=== PATIENT | male | born 1935 | race Caucasian/White ===

== ENCOUNTER → 2016-11-09 | Outpatient (CLI) | payer OTHER | END | disposition home or self-care (01) | LOC: LAB.O 10:42 | PROVIDERS: ATTEND Nurse Practitioner Family | DX: R40.4 Transient alteration of awareness (principal); R40.0 Somnolence ==

== ENCOUNTER → 2017-01-31 | Outpatient (CLI) | payer OTHER | END | disposition home or self-care (01) | LOC: LAB.O 15:50 | PROVIDERS: ATTEND Nurse Practitioner Family | DX: I95.1 Orthostatic hypotension (principal) ==

== ENCOUNTER 2017-09-16 10:00 | Day surgery (SDC) | payer OTHER ==
[~2017-09-16 10:00] MED LIST: TROP 1%/CYCLOPEN 1%/PHENYL 2% DROPS ONE
[2017-09-16] MEDS: PROPARACAINE 0.5% OPHTH SOL 15 ML BTTL LEFT_EYE ONE ×2 (13:15→13:35)
[2017-09-16] MEDS: TOBRAMYCIN SULF 0.3 % OPHT SOL 1 DROP LEFT_EYE ONE ×2 (13:15→13:43)
[2017-09-16] MEDS ORDERED: MIDAZOLAM INJ 2 MG/2 ML VIAL ONE (13:27)
[2017-09-16] MEDS ORDERED: LIDOCAINE 1% PF 2 ML AMP INJ ONE ×2 (13:43→13:52)
[2017-09-16] MEDS ORDERED: DEXAMETHASONE 0.1% OPHTH SOL 1 DROP LEFT_EYE ONE ×4 (13:43→14:10)
[2017-09-16] MEDS ORDERED: BRIMONIDINE 0.2% OPHTH DROPS LEFT_EYE ONE ×4 (13:44→14:10)
[2017-09-16] MEDS ORDERED: TOBRAMYCIN SULF 0.3 % OPHT SOL 1 DROP LEFT_EYE ONE ×3 (14:03→14:10)
[2017-09-16 16:41] VITALS: BP 106/83; TEMP 97.3; O2SAT 98
== END 2017-09-16 14:55 | disposition home or self-care (01) ==
LOC: AMB 10:00
PROVIDERS: ATTEND Ophthalmology
DX: H25.12 Age-related nuclear cataract, left eye (principal); N40.0 Benign prostatic hyperplasia without lower urinary tract symptoms; F03.90 Unspecified dementia, unspecified severity, without behavioral disturbance, psychotic disturbance, mood disturbance, and anxiety; G47.30 Sleep apnea, unspecified; Z91.041 Radiographic dye allergy status; Z79.82 Long term (current) use of aspirin; Z79.899 Other long term (current) drug therapy
CPT/HCPCS: 00142; 66984; J2250

== ENCOUNTER 2017-09-30 05:32 | Day surgery (SDC) | payer OTHER ==
[2017-09-30] MEDS ORDERED: TROP 1%/CYCLOPEN 1%/PHENYL 2% DROPS ONE (05:58)
[2017-09-30] MEDS ORDERED: PROPARACAINE 0.5% OPHTH SOL 15 ML BTTL ONE (05:58)
[2017-09-30] MEDS ORDERED: LIDOCAINE 1% PF 2 ML AMP INJ ONE (14:12)
[2017-09-30] MEDS ORDERED: DEXAMETHASONE 0.1% OPHTH SOL 1 DROP RIGHT_EYE ONE ×2 (14:17→14:28)
[2017-09-30] MEDS ORDERED: TOBRAMYCIN SULF 0.3 % OPHT SOL 1 DROP RIGHT_EYE ONE ×2 (14:18→14:28)
[2017-09-30] MEDS ORDERED: BRIMONIDINE 0.2% OPHTH DROPS RIGHT_EYE ONE ×2 (14:18→14:28)
== END 2017-09-30 15:05 | disposition home or self-care (01) ==
LOC: AMB 05:32
PROVIDERS: ATTEND Ophthalmology
DX: H25.11 Age-related nuclear cataract, right eye (principal); I10 Essential (primary) hypertension; I25.10 Atherosclerotic heart disease of native coronary artery without angina pectoris; K21.9 Gastro-esophageal reflux disease without esophagitis; J45.909 Unspecified asthma, uncomplicated; G47.30 Sleep apnea, unspecified; F03.90 Unspecified dementia, unspecified severity, without behavioral disturbance, psychotic disturbance, mood disturbance, and anxiety; Z87.891 Personal history of nicotine dependence; Z79.82 Long term (current) use of aspirin; Z79.899 Other long term (current) drug therapy

== ENCOUNTER → 2018-02-17 | Outpatient (CLI) | payer OTHER | LOC: LAB.O 11:23 | PROVIDERS: ATTEND Nurse Practitioner Family | DX: E86.0 Dehydration (principal) ==

== ENCOUNTER 2018-05-09 18:21 | Emergency (ER) | payer OTHER ==
[2018-05-09] MEDS ORDERED: SODIUM CHLORIDE 0.9% 1000ML 1,000 ML IVS ONE (18:30)
--- NOTE | 2018-05-09 18:33 | ED.PDOC ---
History of Present Illness - General Chief Complaint: Neuro Symptoms/Deficits Stated Complaint: slurred speech,weakness Time Seen by Provider: 05/09/18 18:24 Source: family Exam Limitations: clinical condition - History of Present Illness Initial Comments: Pt has had cough x 2 days. today started having fever, weakness, and increased confusion Timing/Duration: 4-6 hours Severity: moderate Improving Factors: nothing Worsening Factors: nothing Associated Symptoms: cough, fever/chills, weakness, other - confusion worse Allergies/Adverse Reactions: Allergies Iodine Allergy (Verified 05/11/14 12:08) Home Medications: Ambulatory Orders Ascorbic Acid [Vitamin C] 1,000 mg PO DAILY 09/16/17 Aspirin [Aspirin EC Low Dose] 1 ea PO DAILY 09/16/17 Cyanocobalamin [B12] 1,000 mcg PO DAILY 09/16/17 Divalproex Sodium [Depakote ER] 250 mg PO BEDTIME 09/16/17 Donepezil Hydrochloride [Donepezil HCl] 23 mg PO BEDTIME 09/16/17 Melatonin 5 mg PO BEDTIME 09/16/17 Memantine [Namenda] 25 mg PO 09/16/17 Fairview 3 Fatty Acids-Fairview 6 FA [Fairview-3 & Fairview-6 Fish Oi] 1 cap PO DAILY 09/16/17 Potassium Phosphate Tab [K-Phos Tab] 1 each PO DAILY 09/16/17 Propafenone HCl [Rythmol Sr] 325 mg PO BEDTIME 09/16/17 Sertraline HCl [Zoloft] 50 mg PO DAILY 09/16/17 Tamsulosin [Flomax] 0.4 mg PO QD 09/16/17 Terazosin HCl 5 mg PO DAILY 09/16/17 Testosterone [EC-Rx Testosterone 10%] 10 % TD BEDTIME 09/16/17 Vitamins A & D W/ K [Adk [id number] Unit-Mcg] 1 cap PO DAILY 09/16/17 Cefdinir 300 mg PO BID #20 capsule 05/09/18 Review of Systems - Review of Systems Constitutional: States: fever, weakness Respiratory: States: cough Unable to Obtain Due To: dementia Past Medical History (General) - Patient Medical History Hx Seizures: No Hx Stroke: No Hx Dementia: No Hx Asthma: No Hx of COPD: No Hx Cardiac Disorders: No Hx Congestive Heart Failure: No Hx Pacemaker: No Hx Hypertension: No Hx Thyroid Disease: No Hx Diabetes: No Hx Gastroesophageal Reflux: No Hx Renal Disease: No Hx Cancer: No Hx of HIV: No Hx Hepatitis C: No Hx MRSA: No - Vaccination History Hx Tetanus, Diphtheria Vaccination: No Hx Influenza Vaccination: No Hx Pneumococcal Vaccination: No - Social History Hx Tobacco Use: Yes Hx Chewing Tobacco Use: No Hx Alcohol Use: No Hx Substance Use: No Hx Substance Use Treatment: No Hx Depression: No Hx Physical Abuse: No Hx Emotional Abuse: No Hx Suspected Abuse: No - Female History Patient : No Family Medical History - Family History Mother Age (years): 98 Living Status: Hx Family;Other: dementia Physical Exam - Physical Exam General Appearance: Agitated, Lethargic, Obvious distress Eye Exam: bilateral normal Ears, Nose, Throat: hearing decreased, other - dry mucosa Neck: normal inspection Respiratory: chest non-tender, normal breath sounds, no respiratory distress Cardiovascular/Chest: regular rate, rhythm, no edema Gastrointestinal/Abdominal: normal bowel sounds, non tender, soft Extremity: normal inspection, no pedal edema Departure - Departure Clinical Impression: Confusion associated with infection Acute bronchitis Qualifiers: Bronchitis organism: unspecified organism Qualified Code(s): J20.9 - Acute bronchitis, unspecified Disposition: Discharge to Home or Self Care Condition: Fair Departure Forms: ED Discharge - Pt. Copy, Patient Portal Self Enrollment Referrals: [facility] [employer] APPLICATIONS MANAGER [Primary Care Provider] - 1-2 Weeks Prescriptions: Cefdinir 300 mg PO BID #20 capsule Home Medications: Ambulatory Orders Ascorbic Acid [Vitamin C] 1,000 mg PO DAILY 09/16/17 Aspirin [Aspirin EC Low Dose] 1 ea PO DAILY 09/16/17 Cyanocobalamin [B12] 1,000 mcg PO DAILY 09/16/17 Divalproex Sodium [Depakote ER] 250 mg PO BEDTIME 09/16/17 Donepezil Hydrochloride [Donepezil HCl] 23 mg PO BEDTIME 09/16/17 Melatonin 5 mg PO BEDTIME 09/16/17 Memantine [Namenda] 25 mg PO 09/16/17 Fairview 3 Fatty Acids-Fairview 6 FA [Fairview-3 & Fairview-6 Fish Oi] 1 cap PO DAILY 09/16/17 Potassium Phosphate Tab [K-Phos Tab] 1 each PO DAILY 09/16/17 Propafenone HCl [Rythmol Sr] 325 mg PO BEDTIME 09/16/17 Sertraline HCl [Zoloft] 50 mg PO DAILY 09/16/17 Tamsulosin [Flomax] 0.4 mg PO QD 09/16/17 Terazosin HCl 5 mg PO DAILY 09/16/17 Testosterone [EC-Rx Testosterone 10%] 10 % TD BEDTIME 09/16/17 Vitamins A & D W/ K [Adk [id number] Unit-Mcg] 1 cap PO DAILY 09/16/17 Cefdinir 300 mg PO BID #20 capsule 05/09/18
--- NOTE | 2018-05-09 19:05 | RAD ---
EXAM DESCRIPTION: Chest,1 View CLINICAL HISTORY: 83 years Male, cough Comparison: 05/11/2014 FINDINGS: Single AP view of the chest. Cardiomediastinal silhouette is within normal limits. Low lung volumes bilaterally. No focal lung consolidation. No pleural effusion. No pneumothorax. No acute osseous finding. IMPRESSION: No acute chest finding. Electronically signed by: Amanda Lai MD 05/09/2018 7:04 PM IP COUNSEL
[2018-05-09] MEDS ORDERED: cefTRIAXone SODIUM 1 GM in SODIUM CHL 0.9% 50ML MIN-BAG+ 50 ML IVPB ONE (22:01)
[2018-05-09] MEDS ORDERED: cefTRIAXone SODIUM 1 GM VIAL ONE (22:05)
[2018-05-09] MEDS ORDERED: SODIUM CHL 0.9% 50ML MIN-BAG+ 50 ML IVPB ONE (22:06)
[2018-05-09] MEDS ORDERED: IBUPROFEN 200 MG TAB PO ONE (22:13)
[2018-05-09 22:57] VITALS: BP 154/90; TEMP 101; O2SAT 98
== END 2018-05-09 22:57 | disposition home or self-care (01) ==
LOC: ER 18:21
DX: J20.9 Acute bronchitis, unspecified (principal); R41.0 Disorientation, unspecified; F03.90 Unspecified dementia, unspecified severity, without behavioral disturbance, psychotic disturbance, mood disturbance, and anxiety; Z79.899 Other long term (current) drug therapy; Z87.891 Personal history of nicotine dependence
CPT/HCPCS: 36415; 71045; 80053; 81001; 85025; 87040; 87502; J0696; J7030; J7050

== ENCOUNTER → 2019-01-27 | Outpatient (CLI) | payer OTHER | LOC: LAB.O 11:47 | PROVIDERS: ATTEND Nurse Practitioner Family | DX: G30.9 Alzheimer's disease, unspecified (principal); Z13.6 Encounter for screening for cardiovascular disorders ==

== ENCOUNTER 2019-07-20 18:53 | Emergency (ER) | payer OTHER ==
[2019-07-20] MEDS ORDERED: SODIUM CHLORIDE 0.9% (FLUSH) 10 ML SYG IV PRN (19:02)
[2019-07-20] MEDS ORDERED: SODIUM CHLORIDE 0.9% 1000ML 1,000 ML IVS ONE (19:03)
--- NOTE | 2019-07-20 19:06 | ED.PDOC ---
History of Present Illness - General Chief Complaint: Neuro Symptoms/Deficits Time Seen by Provider: 07/20/19 19:02 Source: family, EMS - History of Present Illness Initial Comments: 84 yo male with PMH of end-stage dementia who is bib EMS from home for cc of altered mental status. Family reports pt is more altered and aggressive/combative than usual today so they called EMS for ED evaluation. No meaningful hx able to be obtained from pt. EMS reported SpO2 86% on room air which improved on NC en route. He was given Versed 2.5 mg IV en route with improvement in combativeness. Noted fever here on arrival 100.9 F. Son who lives with and cares for pt at home at bedside shortly after pt arrival. He reports confusion actually is near his usual baseline but that he has been shaking more than usual to BL UE's and face intermittently for past couple days and also seems to intermittently be having pain in the Right leg for past few days. However, he was noted to be ambulating earlier at home with his walker without any pain. Allergies/Adverse Reactions: Allergies Iodine Allergy (Verified 05/11/14 12:08) Home Medications: Ambulatory Orders Ascorbic Acid [Vitamin C] 1,000 mg PO DAILY 09/16/17 Aspirin [Aspirin EC Low Dose] 1 ea PO DAILY 09/16/17 Cyanocobalamin [B12] 1,000 mcg PO DAILY 09/16/17 Divalproex Sodium [Depakote ER] 250 mg PO BEDTIME 09/16/17 Donepezil Hydrochloride [Donepezil HCl] 23 mg PO BEDTIME 09/16/17 Melatonin 5 mg PO BEDTIME 09/16/17 Memantine [Namenda] 25 mg PO 09/16/17 Simon-3 Fatty Acids [Simon-3 & Simon-6 Fish Oi] 1 cap PO DAILY 09/16/17 Potassium Phosphate Tab [K-Phos Tab] 1 each PO DAILY 09/16/17 Propafenone HCl [Rythmol Sr] 325 mg PO BEDTIME 09/16/17 Sertraline HCl [Zoloft] 50 mg PO DAILY 09/16/17 Tamsulosin [Flomax] 0.4 mg PO QD 09/16/17 Terazosin HCl 5 mg PO DAILY 09/16/17 Testosterone [EC-Rx Testosterone 10%] 10 % TD BEDTIME 09/16/17 Vitamins A & D W/ K [Adk [id number] Unit-Mcg] 1 cap PO DAILY 09/16/17 Cefdinir 300 mg PO BID #20 capsule 05/09/18 Review of Systems - Review of Systems Review of Systems: 07/20/19 19:06 as per HPI All other Systems: Reviewed and Negative Past Medical History (General) - Patient Medical History Hx Seizures: No Hx Stroke: No Hx Dementia: No Hx Asthma: No Hx of COPD: No Hx Cardiac Disorders: No Hx Congestive Heart Failure: No Hx Pacemaker: No Hx Hypertension: No Hx Thyroid Disease: No Hx Diabetes: No Hx Gastroesophageal Reflux: No Hx Renal Disease: No Hx Cancer: No Hx of HIV: No Hx Hepatitis C: No Hx MRSA: No - Vaccination History Hx Tetanus, Diphtheria Vaccination: No Hx Influenza Vaccination: No Hx Pneumococcal Vaccination: No - Social History Hx Tobacco Use: Yes Hx Chewing Tobacco Use: No Hx Alcohol Use: No Hx Substance Use: No Hx Substance Use Treatment: No Hx Depression: No Hx Physical Abuse: No Hx Emotional Abuse: No Hx Suspected Abuse: No - Female History Patient : No Family Medical History - Family History Mother Age (years): 98 Living Status: Hx Family;Other: dementia Physical Exam - Physical Exam General Appearance: Agitated, Anxious, Restless Eye Exam: bilateral normal Ears, Nose, Throat: hearing decreased, other - dry appearing oral mucosa Neck: non-tender, full range of motion, supple, normal inspection Respiratory: chest non-tender, lungs clear, normal breath sounds, no respiratory distress, no accessory muscle use Cardiovascular/Chest: normal peripheral pulses, regular rate, rhythm, no edema, no gallop, no JVD, no murmur Peripheral Pulses: radial,right: 2+, radial,left: 2+ Gastrointestinal/Abdominal: non tender, soft, no organomegaly Back Exam: normal inspection, no CVA tenderness Extremity: normal range of motion, non-tender, normal inspection, no pedal edema, no calf tenderness Neurologic: no motor/sensory deficits, disoriented x 3, other - awake but does not respond to verbal questions, does not follow commands, babbles incoherently Skin Exam: normal color, warm/dry Progress - Progress Progress: 07/20/19 19:08 AMS -consider dehydration, metabolic, electrolytes, infectious, ACS, UTI, PNA, CHF, iatrogenic, neurogenic, other -obtain labs, flu, UA, cardiac work-up, CT head 07/21/19 22:30 -Pt has remained stable through ED stay. CT head showed no acute processes, chronic microvascular ischemic changes noted. XR Chest, pelvis, R femur no acute processes. Strep testing positive, flu negative. Labs show BUN 37, Cr 1.2, otherwise largely unremarkable from baseline. Discussed with pt's family at length. Given Bicillin 1.2 million units IM for strep. Feel this along with mild dehydration and uremia are likely contributing to his AMS. No emergent conditions seem present. Offered consultation of hospitalist for admission but his family would just like to take him back home. Return warnings discussed at length and close PCP f/u advised. Usman Pickard MD Billing #[id number] 07/20/19 19:02 IV Care:Saline Lock per Protoc QSHIFT Telemetry .ONCE EKG Assessment ONCE Pulse Oximetry Assessment DAILY 07/20/19 19:15 EKG STAT Laboratory Results - last 24 hr 07/20/19 07/20/19 07/20/19 19:20 19:20 19:20 WBC 4.8 RBC 4.01 L Hgb 12.9 L Hct 39.6 L MCV 98.8 H MCH 32.1 H MCHC 32.5 L RDW 14.8 H Plt Count 106 L MPV 8.2 Absolute Neuts (auto) 3.20 Absolute Lymphs (auto) 0.70 L Absolute Monos (auto) 0.80 Absolute Eos (auto) 0.00 Absolute Basos (auto) 0.00 Neutrophils % 66.9 Lymphocytes % 14.3 L Monocytes % 17.7 H Eosinophils % 0.3 L Basophils % 0.8 Sodium 143 Potassium 3.9 Chloride 107 Carbon Dioxide 23 Anion Gap 16.9 BUN 37 H Creatinine 1.21 BUN/Creatinine Ratio 30.6 H Random Glucose 109 H Serum Osmolality 294.2 Lactic Acid 1.6 Calcium 9.4 Total Bilirubin 0.9 AST 38 ALT 24 Alkaline Phosphatase 110 Troponin I B-Natriuretic Peptide 176.0 H Serum Total Protein 7.3 Albumin 3.7 Globulin 3.6 H Albumin/Globulin Ratio 1.0 L Group A Strep Rapid 07/20/19 07/20/19 19:20 19:20 WBC RBC Hgb Hct MCV MCH MCHC RDW Plt Count MPV Absolute Neuts (auto) Absolute Lymphs (auto) Absolute Monos (auto) Absolute Eos (auto) Absolute Basos (auto) Neutrophils % Lymphocytes % Monocytes % Eosinophils % Basophils % Sodium Potassium Chloride Carbon Dioxide Anion Gap BUN Creatinine BUN/Creatinine Ratio Random Glucose Serum Osmolality Lactic Acid Calcium Total Bilirubin AST ALT Alkaline Phosphatase Troponin I 0.03 B-Natriuretic Peptide Serum Total Protein Albumin Globulin Albumin/Globulin Ratio Group A Strep Rapid Positive - EKG/XRAY/CT EKG: Sinus, Tachy - HR 105, no ST elevations or q waves, prolonged DC interval but intervals otherwise wnl, axis normal, unchanged from 11/09/16 EKG XRAY: chest - no acute processes per my read - Additional EKG/XRAY/Consults XRAY #2: pelvis - no acute processes per my read XRAY #3: femur - Right - no acute processes Departure - Departure Clinical Impression: Strep pharyngitis, Dehydration Dementia Qualifiers: Dementia type: unspecified type Dementia behavioral disturbance: with behavioral disturbance Qualified Code(s): F03.91 - Unspecified dementia with behavioral disturbance Time of Disposition: 22:56 Disposition: Discharge to Home or Self Care Condition: Fair Departure Forms: ED Discharge - Pt. Copy, Patient Portal Self Enrollment Instructions: Sore Throat, Adult (DC) Diet: resume usual diet Referrals: [facility] PRISM MEASURER [Primary Care Provider] - 1-2 Weeks Home Medications: Ambulatory Orders Ascorbic Acid [Vitamin C] 1,000 mg PO DAILY 09/16/17 Aspirin [Aspirin EC Low Dose] 1 ea PO DAILY 09/16/17 Cyanocobalamin [B12] 1,000 mcg PO DAILY 09/16/17 Divalproex Sodium [Depakote ER] 250 mg PO BEDTIME 09/16/17 Donepezil Hydrochloride [Donepezil HCl] 23 mg PO BEDTIME 09/16/17 Melatonin 5 mg PO BEDTIME 09/16/17 Memantine [Namenda] 25 mg PO 09/16/17 Simon-3 Fatty Acids [Simon-3 & Simon-6 Fish Oi] 1 cap PO DAILY 09/16/17 Potassium Phosphate Tab [K-Phos Tab] 1 each PO DAILY 09/16/17 Propafenone HCl [Rythmol Sr] 325 mg PO BEDTIME 09/16/17 Sertraline HCl [Zoloft] 50 mg PO DAILY 09/16/17 Tamsulosin [Flomax] 0.4 mg PO QD 09/16/17 Terazosin HCl 5 mg PO DAILY 09/16/17 Testosterone [EC-Rx Testosterone 10%] 10 % TD BEDTIME 09/16/17 Vitamins A & D W/ K [Adk [id number] Unit-Mcg] 1 cap PO DAILY 09/16/17 Cefdinir 300 mg PO BID #20 capsule 05/09/18 Additional Instructions: Keep the patient well-hydrated and advance the diet as tolerated. Follow up closely in next 3-7 days with the patient's doctor for repeat evaluation and to discuss his behavior changes and review medications. Return if concerning symptoms develop such as chest pain, shortness of breath, abdominal pain, continued fevers, etc...
[2019-07-20 19:33] VITALS: TEMP 100.9
[2019-07-20] MEDS ORDERED: MIDAZOLAM INJ 5 MG/5 ML VIAL ONE (19:40)
--- NOTE | 2019-07-20 19:47 | RAD ---
EXAM DESCRIPTION: XR Chest,1 View CLINICAL HISTORY: Fevers, altered mental status TECHNIQUE: Single frontal view of the chest is submitted. COMPARISON: 05/09/2018 FINDINGS: Heart: The cardiothoracic silhouette is enlarged, stable, in part accentuated by portable technique. Lungs: No focal consolidation. Mediastinum: Unremarkable Pleura: No appreciable effusion. No pneumothorax. Bones: Multilevel spondylosis. No acute fracture. Upper abdomen: Elevation of the right hemidiaphragm and loop of bowel subjacent to the diaphragm again demonstrated. IMPRESSION: No acute disease. Electronically signed by: Janice Pyle MD 07/20/2019 7:46 PM CDT
--- NOTE | 2019-07-20 20:36 | CT ---
PROCEDURE: CT Head CLINICAL HISTORY: altered mental status TECHNIQUE: Contiguous axial CT images obtained through the brain without IV contrast. Coronal and sagittal reformatted images were provided. This exam was performed according to our departmental dose-optimization program, which includes automated exposure control, adjustment of the mA and/or kV according to patient size and/or use of iterative reconstruction technique. COMPARISON: 05/11/2014 FINDINGS: Artifacts: Motion artifact degrades image quality. Brain: Moderate cerebral atrophy and mild bilateral periventricular and subcortical white matter low-attenuation most compatible with chronic microvascular angiopathy, mildly progressed from the prior. No focal mass effect. Evans-white matter differentiation is within normal limits. No hemorrhage. Ventricles: No ventriculomegaly or midline shift. Extra-axial spaces: No extra-axial collection or hemorrhage. Paranasal sinuses and mastoid air cells: Well-aerated Vessels: There is atherosclerotic disease of the internal carotid arteries bilaterally. Bones: Unremarkable Soft tissues: Unremarkable IMPRESSION: 1. Allowing for motion artifact, no acute intracranial or extra-axial abnormality. 2. Other findings as above. Electronically signed by: Janice Pyle MD 07/20/2019 8:34 PM CDT
--- NOTE | 2019-07-20 21:08 | RAD ---
EXAM DESCRIPTION: XR Pelvis (accession [id number]) CLINICAL HISTORY: RLE pain with movement TECHNIQUE: One view of the pelvis is submitted COMPARISON: 07/20/2017 FINDINGS: Bones: No acute fracture. Partially visualized right femoral plate and screws. Joints: No dislocation. Mild degenerative changes at the hip joints bilaterally. Moderate degenerative changes at the lower lumbar spine. Soft tissues: Unremarkable IMPRESSION: No acute abnormality. EXAM DESCRIPTION: XR Femur, Right (accession [id number]) CLINICAL HISTORY: RLE pain with movement TECHNIQUE: Two views of the right femur are submitted. COMPARISON: 07/20/2017 FINDINGS: Bones: No acute fracture. Anterior and lateral plate and screw fixation transfixing a remote mid to distal femoral diaphyseal fracture with surrounding callus again demonstrated. Symmetric lucency surrounding the most distal femoral screw similar to the prior suggestive of loosening. Small metallic densities surrounding the distal hardware again demonstrated. Joints: Mild degenerative changes at the right hip joint. Mild to moderate degenerative changes at the medial greater than lateral compartment of the knee. Soft tissues: Unremarkable IMPRESSION: No acute abnormality. Electronically signed by: Janice Pyle MD 07/20/2019 9:06 PM CDT
--- NOTE | 2019-07-20 21:08 | RAD ---
EXAM DESCRIPTION: XR Pelvis (accession [id number]) CLINICAL HISTORY: RLE pain with movement TECHNIQUE: One view of the pelvis is submitted COMPARISON: 07/20/2017 FINDINGS: Bones: No acute fracture. Partially visualized right femoral plate and screws. Joints: No dislocation. Mild degenerative changes at the hip joints bilaterally. Moderate degenerative changes at the lower lumbar spine. Soft tissues: Unremarkable IMPRESSION: No acute abnormality. EXAM DESCRIPTION: XR Femur, Right (accession [id number]) CLINICAL HISTORY: RLE pain with movement TECHNIQUE: Two views of the right femur are submitted. COMPARISON: 07/20/2017 FINDINGS: Bones: No acute fracture. Anterior and lateral plate and screw fixation transfixing a remote mid to distal femoral diaphyseal fracture with surrounding callus again demonstrated. Symmetric lucency surrounding the most distal femoral screw similar to the prior suggestive of loosening. Small metallic densities surrounding the distal hardware again demonstrated. Joints: Mild degenerative changes at the right hip joint. Mild to moderate degenerative changes at the medial greater than lateral compartment of the knee. Soft tissues: Unremarkable IMPRESSION: No acute abnormality. Electronically signed by: Janice Pyle MD 07/20/2019 9:06 PM CDT
[2019-07-20] MEDS ORDERED: PENICILLIN BENZATHINE 1.2 MU 1.2 MU/2 ML SYG IM ONE (21:47)
[2019-07-20] MEDS ORDERED: SODIUM CHLORIDE 0.9% 500ML 500 ML IVS ONE (21:47)
[2019-07-20 23:27] VITALS: BP 103/76; O2SAT 99
== END 2019-07-20 23:15 | disposition home or self-care (01) ==
LOC: ER 18:53
DX: F03.91 Unspecified dementia, unspecified severity, with behavioral disturbance (principal); J02.0 Streptococcal pharyngitis; E86.0 Dehydration; R00.0 Tachycardia, unspecified; Z87.891 Personal history of nicotine dependence; Z79.899 Other long term (current) drug therapy; Z79.82 Long term (current) use of aspirin; Z91.041 Radiographic dye allergy status
CPT/HCPCS: 70450; 71045; 72170; 73551; 80053; 83605; 83880; 84484; 85025; 87502; 87880; 93005; J0561; J2060; J7030; J7040

== ENCOUNTER → 2019-07-23 | Outpatient (CLI) | payer OTHER ==
--- NOTE | 2019-07-24 09:20 | RAD ---
EXAM DESCRIPTION: Chest,1 View CLINICAL HISTORY: 84 years Male, AMS. R41.82 COMPARISON: Previous study July 20, 2019 TECHNIQUE: AP portable chest. FINDINGS: Heart size is large with normal pulmonary vascularity. 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 Elevated diaphragms bilaterally. Partial volume loss or infiltrate in the left lung base with blunting of left costophrenic angle consistent with small effusion. This area could be better evaluated with upright PA and lateral chest x-ray if patient is able. No consolidating infiltrate. No pulmonary mass or worrisome nodule. No pneumothorax. Bones are unremarkable. IMPRESSION: Partial volume loss or infiltrate in the left lung base. Small left pleural effusion. Electronically signed by: Arturo Durbin MD 07/24/2019 9:18 AM CDT
--- NOTE | 2019-07-24 09:42 | RAD ---
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 Findings: Four views/radiographs Location: Right foot No acute fracture or dislocation. Mild midfoot osteoarthritis. Mild first MTP arthropathy. Lisfranc alignment is maintained. No soft tissue gas. There is soft tissue swelling along the plantar surface heel. No aggressive osseous erosion. Os trigonum. IMPRESSION: Soft tissue swelling about the plantar surface of the right foot. No acute osseous abnormality. Electronically signed by: Cj Addison MD 07/24/2019 9:40 AM CDT
== END ==
LOC: LAB.O 15:25
PROVIDERS: ATTEND Nurse Practitioner Family
DX: J90 Pleural effusion, not elsewhere classified (principal); R91.8 Other nonspecific abnormal finding of lung field; R41.82 Altered mental status, unspecified; I87.311 Chronic venous hypertension (idiopathic) with ulcer of right lower extremity

== ENCOUNTER 2019-07-24 13:35 | Inpatient (IN) | payer OTHER ==
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
[2019-07-24] MEDS ORDERED: SODIUM CHLORIDE 0.9% (FLUSH) 10 ML SYG IV PRN (14:03)
[2019-07-24] MEDS ORDERED: ONDANSETRON INJ 4 MG/2 ML VIAL IV PRN (14:03)
[2019-07-24] MEDS ORDERED: ALBUTEROL SULFATE 2.5 MG/3 ML VIAL NEB PRN (14:03)
[2019-07-24] MEDS ORDERED: VANCOMYCIN PER PHARMACY INJ SCH (14:30)
[2019-07-24] MEDS ORDERED: PIPERACILLIN/TAZOBACTAM 3.375 GM VIAL IVPB ONE ×3 (15:06→19:19)
[2019-07-24] MEDS ORDERED: SODIUM CHLORIDE 0.9% 100ML 100 ML IVPB ONE ×3 (15:06→19:20)
[2019-07-24] MEDS: PIPERACILLIN/TAZOBACTAM 3.375 GM in SODIUM CHLORIDE 0.9% 100ML 100 ML IVPB SCH ×2 (15:14→20:13)
[2019-07-24] MEDS ORDERED: VANCOMYCIN HCL INJ 500 MG VIAL ONE (16:03)
[2019-07-24] MEDS ORDERED: VANCOMYCIN HCL INJ 1,000 MG VIAL IVPB ONE (16:04)
[2019-07-24] MEDS ORDERED: SODIUM CHLORIDE 0.9% 250ML 250 ML ONE (16:04)
[2019-07-24] MEDS: IV SET AND CAP CHANGE INJ INJ SCH (16:24)
[2019-07-24] MEDS: VANCOMYCIN HCL INJ 1,000 MG, VANCOMYCIN HCL INJ 250 MG in SODIUM CHLORIDE 0.9% 250ML 25... IVPB SCH (16:24)
--- NOTE | 2019-07-24 16:44 | RAD ---
EXAM DESCRIPTION: Chest,1 View CLINICAL HISTORY: pna cough COMPARISON: July 23, 2019 IMPRESSION: Single AP portable upright view of the chest shows enlargement of the cardiac silhouette with left ventricular contour. No pulmonary vascular congestion. Patient is mildly rotated towards the left. Lungs are normally aerated and clear. Infiltrate in the left lower lobe seen on previous exam is resolved. No obvious pleural effusion or pneumothorax is seen. Air-filled bowel is seen below the right hemidiaphragm. Electronically signed by: Jovani Rodrigues MD 07/24/2019 4:43 PM CDT
[2019-07-24] MEDS: IPRATROPIUM/ALBUTEROL 3 ML VIAL INH SCH ×2 (17:20→21:19)
[2019-07-24] MEDS ORDERED: DIVALPROEX SODIUM ER 250 MG TAB PO SCH (21:00)
[2019-07-24] MEDS ORDERED: PROPAFENONE HCL 325 MG PO SCH (21:00)
[2019-07-24] MEDS: TAMSULOSIN 0.4 MG CAP PO SCH (21:01)
[2019-07-24] MEDS: NON-FORMULARY MEDICATION 1 EA MIS (Donepezil Hydrochloride [Donepezil Hcl] 23 MG) PO SCH (21:01)
[2019-07-24] MEDS: SODIUM CHLORIDE 0.9% (FLUSH) 10 ML SYG IV SCH (21:03)
[2019-07-24] MEDS: ENOXAPARIN SODIUM 40 MG/0.4 ML SYG SUBCU SCH (21:03)
[2019-07-24] MEDS: KCL 40 MEQ/D5 1/2NS 1,000 ML IVS PRN (21:05)
[2019-07-25] MEDS: PIPERACILLIN/TAZOBACTAM 3.375 GM in SODIUM CHLORIDE 0.9% 100ML 100 ML IVPB SCH ×4 (01:58→20:34)
[2019-07-25] MEDS: KCL 40 MEQ/D5 1/2NS 1,000 ML IVS PRN ×2 (05:31→15:11)
[2019-07-25] MEDS ORDERED: PIPERACILLIN/TAZOBACTAM 3.375 GM VIAL IVPB ONE ×3 (07:31→19:49)
[2019-07-25] MEDS ORDERED: SODIUM CHLORIDE 0.9% 100ML 100 ML IVPB ONE ×3 (07:31→19:50)
--- NOTE | 2019-07-25 07:33 | RAD ---
EXAM: Chest,1 View HISTORY: Pneumonia COMPARISON: Chest one view 07/24/2019 TECHNIQUE: Chest one view portable AP upright FINDINGS: Patient is mildly leftward rotated. Moderate decreased inspiration (decreased lung volumes) makes evaluation more difficult and may accentuate heart size and pulmonary vascularity. Mild hazy bilateral lower lung field opacities. Mild hazy left upper lung field opacity. No significant pleural effusion or pneumothorax. Undulation of right hemidiaphragm (normal variant). No acute fracture. IMPRESSION: Moderate decreased inspiration (decreased lung volumes) makes evaluation more difficult and may accentuate heart size. Mild hazy bilateral lower lung field and left upper lung field opacities. This may represent subsegmental atelectasis, pulmonary edema, scar, and/or infection. Electronically signed by: Jose De Jesus Schneider MD 07/25/2019 7:31 AM CDT
[2019-07-25] MEDS: IPRATROPIUM/ALBUTEROL 3 ML VIAL INH SCH ×4 (08:25→19:31)
[2019-07-25] MEDS ORDERED: MEMANTINE 10 MG TAB PO SCH (09:00)
[2019-07-25] MEDS ORDERED: POTASSIUM CHLORIDE 20 MEQ TAB PO ONE (09:21)
[2019-07-25] MEDS: MEMANTINE HCL 28 MG PO SCH (09:54)
[2019-07-25] MEDS: ASPIRIN (ENTERIC COATED) 81 MG TAB PO SCH (09:55)
[2019-07-25] MEDS: SODIUM CHLORIDE 0.9% (FLUSH) 10 ML SYG IV SCH ×2 (09:56→20:37)
[2019-07-25] MEDS ORDERED: SODIUM CHLORIDE 0.9% 250ML 250 ML ONE (15:28)
[2019-07-25] MEDS ORDERED: VANCOMYCIN HCL INJ 1,000 MG VIAL IVPB ONE (15:28)
[2019-07-25] MEDS ORDERED: VANCOMYCIN HCL INJ 500 MG VIAL ONE (15:28)
[2019-07-25] MEDS: VANCOMYCIN HCL INJ 1,000 MG, VANCOMYCIN HCL INJ 250 MG in SODIUM CHLORIDE 0.9% 250ML 25... IVPB SCH (15:42)
[2019-07-25] MEDS: TAMSULOSIN 0.4 MG CAP PO SCH (20:35)
[2019-07-25] MEDS: DIVALPROEX 500 MG PO SCH (20:35)
[2019-07-25] MEDS: NON-FORMULARY MEDICATION 1 EA MIS (Donepezil Hydrochloride [Donepezil Hcl] 23 MG) PO SCH (20:35)
[2019-07-25] MEDS: ENOXAPARIN SODIUM 40 MG/0.4 ML SYG SUBCU SCH (20:35)
[2019-07-25] MEDS: PROPAFENONE HCL 225 MG PO SCH (20:36)
[2019-07-26] MEDS ORDERED: PIPERACILLIN/TAZOBACTAM 3.375 GM VIAL IVPB ONE ×4 (02:07→21:05)
[2019-07-26] MEDS ORDERED: SODIUM CHLORIDE 0.9% 100ML 100 ML IVPB ONE ×4 (02:07→21:06)
[2019-07-26] MEDS: PIPERACILLIN/TAZOBACTAM 3.375 GM in SODIUM CHLORIDE 0.9% 100ML 100 ML IVPB SCH ×4 (02:34→21:06)
[2019-07-26] MEDS: KCL 40 MEQ/D5 1/2NS 1,000 ML IVS PRN (02:44)
[2019-07-26] MEDS: ASPIRIN (ENTERIC COATED) 81 MG TAB PO SCH (08:09)
[2019-07-26] MEDS: MEMANTINE HCL 28 MG PO SCH (08:09)
[2019-07-26] MEDS: SODIUM CHLORIDE 0.9% (FLUSH) 10 ML SYG IV SCH ×2 (08:10→21:05)
--- NOTE | 2019-07-26 08:17 | PN ---
SUPERVISING PHYSICIAN: Tono Akhtar MD DATE: 07/25/19 SUBJECTIVE: The patient is awake, much more alert than yesterday. He still mumbles and it is very difficult to understand him but he is much improved since yesterday. His son-in-law is at the bedside. He also agrees that he has improved, otherwise, the patient denies any shortness of breath or chest pain but he is a poor historian. OBJECTIVE: VITAL SIGNS: Temperature is 97.9, heart rate 84, blood pressure 121/72, respiratory rate 18, oxygen saturation 92% on room air. RESPIRATORY: Diminished at the bases, otherwise clear to auscultation. CARDIAC: Regular rate and rhythm. ABDOMEN: Soft, nondistended, non-tender. Bowel sounds are positive. EXTREMITIES: He does have that area of cellulitis to his right heel that is somewhat improved since yesterday. There is a small amount of edema and erythema. No fluctuance or drainage noted. NEURO: He is awake and alert. LABORATORY: WBCs have improved to 13,200 with hemoglobin of 10, hematocrit 29.5. Sodium is 136, potassium slightly low at 3.2 with a chloride of 106. His creatinine has improved to 1.24, magnesium 1.8. Preliminary blood cultures show no growth. Chest x-ray shows moderate decreased inspiration makes evaluation more difficult with mild hazy bilateral lower lung field and left upper lung field opacity All other labs and films have been reviewed via the EMR. ASSESSMENT: 1. Sepsis most likely secondary to left lower lobe pneumonia and/or strep pharyngitis. His vital signs are mostly stable today but in the Emergency Room approximately 36 hours ago, his temperature was 100.9, heart rate was 111. He had an acute mental status change. His oxygen saturation was 86% as reported by EMS. Today his WBCs are 19,600 with 23 bands. He also has a positive blood culture showing gram positive cocci. 2. Left lower lobe pneumonia, most likely community acquired. 3. Strep pharyngitis, failed outpatient treatment. He received an injection of penicillin 2 days ago. 4. Cellulitis of his right heel. 5. Advanced dementia with an acute altered mental status. 6. Recent same level fall from 2 days ago most likely due to altered mental status. He had negative x-rays in the Emergency Room. PLAN: We will continue present supportive care. I have ordered labs for in the morning and will watch the patient's clinical presentation. His WBCs have improved and his clinical picture is improved. I have given him some potassium supplementation and I stopped his fluids. He continues to have p.r.n. and scheduled nebulizer treatments and we will continue to watch him closely and follow as needed. #[id number] [facility]
[2019-07-26] MEDS: IPRATROPIUM/ALBUTEROL 3 ML VIAL INH SCH ×4 (08:20→21:10)
[2019-07-26] MEDS ORDERED: MEMANTINE HCL 28 MG PO SCH (10:15)
[2019-07-26] MEDS ORDERED: SODIUM CHLORIDE 0.9% 250ML 250 ML ONE (16:57)
[2019-07-26] MEDS ORDERED: VANCOMYCIN HCL INJ 500 MG VIAL ONE (16:57)
[2019-07-26] MEDS ORDERED: VANCOMYCIN HCL INJ 1,000 MG VIAL IVPB ONE (16:58)
[2019-07-26] MEDS: VANCOMYCIN HCL INJ 1,000 MG, VANCOMYCIN HCL INJ 250 MG in SODIUM CHLORIDE 0.9% 250ML 25... IVPB SCH (17:19)
[2019-07-26] MEDS ORDERED: NON-FORMULARY MEDICATION 1 EA MIS (Divalproex Sodium [Divalproex Sodium Dr] 500 MG) PO SCH (21:00)
[2019-07-26] MEDS ORDERED: PROPAFENONE HCL 225 MG PO SCH (21:00)
[2019-07-26] MEDS: NON-FORMULARY MEDICATION 1 EA MIS (Donepezil Hydrochloride [Donepezil Hcl] 23 MG) PO SCH (21:03)
[2019-07-26] MEDS: DIVALPROEX 500 MG PO SCH (21:04)
[2019-07-26] MEDS: PROPAFENONE HCL 225 MG PO SCH (21:04)
[2019-07-26] MEDS: ENOXAPARIN SODIUM 40 MG/0.4 ML SYG SUBCU SCH (21:06)
[2019-07-26] MEDS: TAMSULOSIN 0.4 MG CAP PO SCH (21:07)
[2019-07-27] MEDS ORDERED: PIPERACILLIN/TAZOBACTAM 3.375 GM VIAL IVPB ONE ×5 (01:36→20:21)
[2019-07-27] MEDS ORDERED: SODIUM CHLORIDE 0.9% 100ML 100 ML IVPB ONE ×5 (01:36→20:21)
[2019-07-27] MEDS: PIPERACILLIN/TAZOBACTAM 3.375 GM in SODIUM CHLORIDE 0.9% 100ML 100 ML IVPB SCH ×4 (02:11→20:44)
[2019-07-27] MEDS: ASPIRIN (ENTERIC COATED) 81 MG TAB PO SCH (07:47)
[2019-07-27] MEDS: SODIUM CHLORIDE 0.9% (FLUSH) 10 ML SYG IV SCH ×2 (07:51→20:46)
[2019-07-27] MEDS: MEMANTINE HCL 28 MG PO SCH (07:53)
--- NOTE | 2019-07-27 08:13 | PN ---
SUPERVISING PHYSICIAN: Tono Akhtar MD DATE: 07/26/19 SUBJECTIVE: The patient is more awake today. He denies any shortness of breath, chest pain, nausea or vomiting. It is difficult to ascertain exactly how he is doing due to his mental status, but he is very pleasant and cooperative. OBJECTIVE: VITAL SIGNS: Temperature 98.7. Heart rate 73. Blood pressure 139/83. Respiratory rate 20. Oxygen saturation 94% on room air. RESPIRATORY: Essentially clear to auscultation bilaterally, somewhat diminished at the bases. CARDIAC: Regular rate and rhythm. ABDOMEN: Soft, nondistended, nontender. Bowel sounds are positive. NEURO: He is awake and alert. He is oriented to person only. LABORATORY: WBCs 8.9, hemoglobin 10.5, hematocrit 31.2. He has a left shift on his differential. Chemistries shows electrolytes basically within normal limits. BUN 29, creatinine improved to 0.96. Bilirubin 1.1, AST 132, ALT 62, alkaline phosphatase 131. Preliminary blood cultures show no growth after 24 hours. Blood cultures from his primary care physician's office show gram positive cocci with Staphylococcus aureus. All other labs and films have been reviewed via the EMR. ASSESSMENT: 1. Sepsis most likely secondary to left lower lobe pneumonia and/or strep pharyngitis. His vital signs are mostly stable today but in the Emergency Room approximately 36 hours ago, his temperature was 100.9, heart rate was 111. He had an acute mental status change. His oxygen saturation was 86% as reported by EMS. Today his WBCs are 19,600 with 23 bands. He also has a positive blood culture showing gram positive cocci. 2. Left lower lobe pneumonia, most likely community acquired. 3. Strep pharyngitis, failed outpatient treatment. He received an injection of penicillin 2 days ago. 4. Cellulitis of his right heel. 5. Advanced dementia with an acute altered mental status. 6. Recent same level fall from 2 days ago most likely due to altered mental status. He had negative x-rays in the Emergency Room. 7. Elevated liver function tests of unknown etiology. PLAN: We will continue present supportive care including his antibiotic coverage as well as monitoring his labs and cultures. Hopefully he can be discharged tomorrow after his physical therapy consultation. I have ordered chest x-ray and labs for tomorrow. Hopefully he can be discharged with close followup with Noel Tovar. We will continue to monitor the patient closely and follow as needed. #[id number] [facility]
[2019-07-27] MEDS: IPRATROPIUM/ALBUTEROL 3 ML VIAL INH SCH ×4 (08:55→20:26)
[2019-07-27] MEDS ORDERED: VANCOMYCIN HCL INJ 1,000 MG, VANCOMYCIN HCL INJ 250 MG in SODIUM CHLORIDE 0.9% 250ML 25... IVPB SCH (16:00)
[2019-07-27] MEDS ORDERED: VANCOMYCIN HCL INJ 500 MG VIAL ONE (17:27)
[2019-07-27] MEDS ORDERED: SODIUM CHLORIDE 0.9% 250ML 250 ML ONE (17:27)
[2019-07-27] MEDS ORDERED: VANCOMYCIN HCL INJ 1,000 MG VIAL IVPB ONE (17:28)
[2019-07-27] MEDS: IV SET AND CAP CHANGE INJ INJ SCH (18:06)
[2019-07-27] MEDS: VANCOMYCIN HCL INJ 1,000 MG, VANCOMYCIN HCL INJ 250 MG in SODIUM CHLORIDE 0.9% 250ML 25... IVPB SCH (18:07)
[2019-07-27] MEDS: TAMSULOSIN 0.4 MG CAP PO SCH (20:44)
[2019-07-27] MEDS: PROPAFENONE HCL 225 MG PO SCH (20:44)
[2019-07-27] MEDS: ENOXAPARIN SODIUM 40 MG/0.4 ML SYG SUBCU SCH (20:44)
[2019-07-27] MEDS: NON-FORMULARY MEDICATION 1 EA MIS (Donepezil Hydrochloride [Donepezil Hcl] 23 MG) PO SCH (20:45)
[2019-07-27] MEDS: DIVALPROEX 500 MG PO SCH (20:45)
--- NOTE | 2019-07-27 21:38 | PN ---
DATE: 07/27/19 SUPERVISING PHYSICIAN: Babak Martínez M.D. SUBJECTIVE: The patient is lying in bed. He is very combative this morning and does not want anybody to touch him. He is disoriented but according to his son-in-law he does this quite frequently. OBJECTIVE: VITAL SIGNS: Temperature 99.6, heart rate 88, blood pressure 151/78, respiratory rate 20, O2 saturation 99% on room air. RESPIRATORY: Somewhat diminished at the bases. CARDIAC: Regular rate and rhythm. NEUROLOGIC: He is confused and combative. He is not easily consolable. LABORATORY: WBCs are 8.7 with hemoglobin 11.3, hematocrit 32.9. He no longer has a left shift on his differential. His electrolytes are basically within normal limits with a bilirubin at 1.1, an AST that has improved to 99 and ALT at 61. Alkaline phosphatase was 135. We continue to wait for his blood cultures, although they do show gram positive cocci and Staphylococcus aureus was reported. We are still awaiting sensitivities. All other labs and films have been reviewed via the EMR. ASSESSMENT: 1. Sepsis most likely secondary to left lower lobe pneumonia and/or strep pharyngitis. His vital signs are mostly stable today but in the Emergency Room approximately 36 hours ago, his temperature was 100.9, heart rate was 111. He had an acute mental status change. His oxygen saturation was 86% as reported by EMS. Today his WBCs are 19,600 with 23 bands. He also has a positive blood culture showing gram positive cocci. 2. Left lower lobe pneumonia, most likely community acquired. 3. Strep pharyngitis, failed outpatient treatment. He received an injection of penicillin 2 days ago. 4. Cellulitis of his right heel. 5. Advanced dementia with an acute altered mental status. 6. Recent same level fall from 2 days ago most likely due to altered mental status. He had negative x-rays in the Emergency Room. 7. Elevated liver function tests of unknown etiology. PLAN: We will continue present supportive care and continue to await the sensitivity from his blood culture from Noel Tovar's office. Hopefully when we get the sensitivities back we can discharge him on oral antibiotics. Jana Monahan, our FORENSIC SCIENCE EXAMINER, spoke with the family in regards to discharge planning, although he was max to total assist as per Physical Therapy, the family does want to try to take him home. We have also given them an option of rehab and they will be considering it and hopefully he can be discharged tomorrow unless he goes to a rehab facility, and then we will change our discharge planning. His labs have mostly normalized so I will hold off on that tomorrow. Again, we are waiting for sensitivities on his blood culture. Will continue to monitor closely and follow as needed. #[id number] [facility]
[2019-07-28] MEDS: PIPERACILLIN/TAZOBACTAM 3.375 GM in SODIUM CHLORIDE 0.9% 100ML 100 ML IVPB SCH ×4 (02:16→21:15)
[2019-07-28] MEDS: IPRATROPIUM/ALBUTEROL 3 ML VIAL INH SCH ×4 (08:48→20:19)
[2019-07-28] MEDS ORDERED: SODIUM CHLORIDE 0.9% 100ML 100 ML IVPB ONE ×3 (09:37→21:14)
[2019-07-28] MEDS ORDERED: PIPERACILLIN/TAZOBACTAM 3.375 GM VIAL IVPB ONE ×3 (09:37→21:14)
[2019-07-28] MEDS: ASPIRIN (ENTERIC COATED) 81 MG TAB PO SCH (09:53)
[2019-07-28] MEDS: SODIUM CHLORIDE 0.9% (FLUSH) 10 ML SYG IV SCH ×2 (09:54→21:15)
[2019-07-28] MEDS: MEMANTINE HCL 28 MG PO SCH (09:55)
[2019-07-28] MEDS ORDERED: VANCOMYCIN HCL INJ 1,000 MG in SODIUM CHLORIDE 0.9% 250ML 250 ML IVPB SCH (10:00)
--- NOTE | 2019-07-28 18:45 | PN ---
DATE: 07/28/19 SUBJECTIVE: The patient is resting in bed comfortably. He has been afebrile. He still remains combative at times but this morning actually is very quiet and pleasant. OBJECTIVE: VITAL SIGNS: Temperature 98.1, pulse 72, blood pressure 138/76, respirations 18, satting 95% on room air. Attempted to have a bowel movement. Weight is 81.1 kg. GENERAL: The patient is resting comfortably. Appears to be in no acute distress. CHEST: Lung sounds were diminished towards the bases and otherwise clear. HEART: Regular rate and rhythm. ABDOMEN: Soft, non-tender. Positive bowel sounds. EXTREMITIES: He is moving extremities ad tanisha. No clubbing, cyanosis or edema noted. NEUROLOGIC: He does remain confused and can be excited at times, but is very pleasant this morning. LABORATORY: Have been fairly stable. Labs were not repeated today. MICROBIOLOGY: Blood cultures did show Methicillin that was sensitive to Staphylococcus aureus. The remaining set of blood cultures remain negative. ASSESSMENT: 1. Sepsis secondary to left lower lobe pneumonia and bacteremia due to Methicillin Staphylococcus aureus. 2. Community acquired left lower lobe pneumonia. 3. History of Strep pharyngitis having failed to respond to outpatient treatment plans, having been on Penicillin 2 days prior to admission. 4. Cellulitis of his right heel showing to be stable and improving. 5. Advanced dementia with some confusional and combative episodes that appears to be back at baseline status. 6. History of same level fall 2 days prior to admission with some altered mental status and negative CT of the head in the Emergency Department. 7. Elevated liver enzymes, etiology uncertain. PLAN: I have changed him to specific antibiotic coverage with Ancef every [address] talking with [address] Harrington, he will need to be on IV antibiotics with Ancef every 8 hours for 21 days. He did have an echocardiogram that was negative and has no evidence of replacement, but does have a deep-seated infection in the form of pneumonia thus requiring extended duration of antibiotic coverage with parenteral delivery in the form of Ancef. A PICC line will be placed tomorrow and we are attempting to find either home health that can do an infusion or hopefully one of the care facilities. Until we can transition to outpatient management will continue to monitor and treat as needed. #[id number] [facility]
[2019-07-28] MEDS: DIVALPROEX 500 MG PO SCH (21:15)
[2019-07-28] MEDS: PROPAFENONE HCL 225 MG PO SCH (21:15)
[2019-07-28] MEDS: TAMSULOSIN 0.4 MG CAP PO SCH (21:15)
[2019-07-28] MEDS: ENOXAPARIN SODIUM 40 MG/0.4 ML SYG SUBCU SCH (21:15)
[2019-07-28] MEDS: NON-FORMULARY MEDICATION 1 EA MIS (Donepezil Hydrochloride [Donepezil Hcl] 23 MG) PO SCH (21:15)
[2019-07-29] MEDS ORDERED: PIPERACILLIN/TAZOBACTAM 3.375 GM VIAL IVPB ONE ×3 (02:55→15:59)
[2019-07-29] MEDS ORDERED: SODIUM CHLORIDE 0.9% 100ML 100 ML IVPB ONE ×3 (02:56→15:59)
[2019-07-29] MEDS: PIPERACILLIN/TAZOBACTAM 3.375 GM in SODIUM CHLORIDE 0.9% 100ML 100 ML IVPB SCH ×3 (03:02→15:30)
[2019-07-29] MEDS: SODIUM CHLORIDE 0.9% (FLUSH) 10 ML SYG IV SCH (11:27)
[2019-07-29] MEDS: ASPIRIN (ENTERIC COATED) 81 MG TAB PO SCH (11:28)
[2019-07-29] MEDS: MEMANTINE HCL 28 MG PO SCH (11:32)
[2019-07-29] MEDS: IPRATROPIUM/ALBUTEROL 3 ML VIAL INH SCH ×3 (12:36→19:02)
--- NOTE | 2019-07-29 14:33 | RAD ---
EXAM DESCRIPTION: Chest,1 View CLINICAL HISTORY: PICC line placement COMPARISON: July 27, 2019 IMPRESSION: Single AP portable upright view of the chest shows mild enlargement of cardiac silhouette with left ventricular contour. No pulmonary vascular congestion. Lungs are normally aerated and clear. No obvious pleural effusion or pneumothorax is seen. Interval placement of right-sided PICC line with distal aspect of the catheter looped on itself in the mid to distal superior vena cava with tip directed cephalic. The tip may be partly within the azygos vein. Electronically signed by: Jovani Rodrigues MD 07/29/2019 2:32 PM CDT
[2019-07-29 18:20] VITALS: BP 162/88; TEMP 98.3; O2SAT 97
--- NOTE | 2019-08-07 11:26 | DS ---
SUPERVISING PHYSICIAN: Babak Martínez MD ADMISSION DIAGNOSES: 1. Sepsis most likely secondary to left lower lobe pneumonia and/or strep pharyngitis. His vital signs are mostly stable today but in the Emergency Room approximately 36 hours ago, his temperature was 100.9, heart rate was 111. He had an acute mental status change. His oxygen saturation was 86% as reported by EMS. Today his WBCs are 19,600 with 23 bands. He also has a positive blood culture showing gram positive cocci. 2. Left lower lobe pneumonia, most likely community acquired. 3. Strep pharyngitis, failed outpatient treatment. He received an injection of penicillin 2 days ago. 4. Cellulitis of his right heel. 5. Advanced dementia with an acute altered mental status. 6. Recent same level fall from 2 days ago most likely due to altered mental status. He had negative x-rays in the Emergency Room. DISCHARGE DIAGNOSES: 1. Sepsis secondary to left lower lobe pneumonia and bacteremia due to Methicillin Staphylococcus aureus. 2. Community acquired left lower lobe pneumonia. 3. History of Strep pharyngitis having failed to respond to outpatient treatment plans, having been on Penicillin 2 days prior to admission. 4. Cellulitis of his right heel showing to be stable and improving. 5. Advanced dementia with some confusional and combative episodes that appears to be back at baseline status. 6. History of same level fall 2 days prior to admission with some altered mental status and negative CT of the head in the Emergency Department. 7. Elevated liver enzymes, etiology uncertain. REASON FOR HOSPITALIZATION: This is an 84-year-old male patient who was actually seen in the Emergency Room 2 days ago with a change in his mental status. 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 His mental status deteriorated over the last few days and he was actually brought to the Emergency Room. He was treated with a penicillin shot off Strep A pharyngitis and was sent home with followup with his primary care provider, Noel Tovar. Noel Tovar saw him yesterday. He had some blood cultures as well as some lab work that was sent off. He did say that his mental status had changed quite dramatically from his previous visits. Today, Noel was called with positive blood culture that showed gram positive cocci and he called me for direct admission to the hospital. Two days in the Emergency Room, his temperature was 100.9 with a heart rate of 111, respiratory rate 18, blood pressure 130/90, 92% O2 saturation. It was also reported that in EMS, he had an O2 saturation of 86%. After he tested positive for Strep A, he was given a penicillin injection. His CBC was basically within normal limits and he was sent home. Today, when he came to the hospital, he was a total max assist to the bed. He has sonorous respirations although his saturations were in the low 90s. Initial vital signs showed a temperature of 97.7, heart rate 75, blood pressure 114/77, respiratory rate 18, O2 saturation 94%. Lab studies were done and he had WBC 19,600 with 23 bands. His electrolytes are basically within normal limits except for potassium low at 3.1. He did have an elevated bilirubin at 1.2. His urinalysis was unremarkable. Blood cultures were again drawn. The patient was directly admitted to the hospital for sepsis and left lower lobe pneumonia. He was given vancomycin per pharmacy protocol as well as Zosyn. He also has a area of cellulitis on his right heel that came from a unstaged pressure ulcer, prior to arrival. I discussed with the family his code status and they did say he wanted to be a full code. LABORATORY STUDIES: Initial white count was 19,600, at discharge was 8,700. Differential did show a left shift with 23% bands initially on admission, this had resolved prior to discharge. Hemoglobin and hematocrit showing to be stable on discharge at 11.3 and 32.9 with platelet count at 92,000. Chemistries on discharge showed normal electrolytes with BUN 21, creatinine 0.92. Liver functions were showing some elevation with AST at 99, creatinine 61 which was improving from admission. Alkaline phosphatase was elevated at 135, magnesium normal at 1.9. Urinalysis showed trace intact blood. Toxicology - He had 2 vancomycin troughs, last trough done on 07/27 was 10.7. MICROBIOLOGY: Final results of blood cultures showed a staphylococcal aureus that was a non-methicillin resistant staphylococcal aureus. RADIOLOGY: Chest x-ray initially on admission on 07/23 showed enlargement of cardiac silhouette with left ventricular contour, no pulmonary vascular congestion. Final chest x-ray done on 07/28 at discharge per radiology interpretation showed interval placement of a right PICC line with lungs normally aerated and clear. No obvious pleural effusion or pneumothorax seen. Please see that report for details. HOSPITAL COURSE: Mr. Bustos was admitted initially on 07/24/19 with sepsis determined to be due to bacteremia from a staphylococcal aureus that was non- resistant methicillin. He also had community acquired left lower lobe pneumonia and history of strep pharyngitis along with some cellulitis to his right heel. PICC line was placed. He was treated with antibiotics during his hospitalization initially with Zosyn and vancomycin and then transitioned over to Ancef based off culture results. He was showing clinical improvement in his treatment and it was felt he could continue with his outpatient management. He was accepted to [facility] for continued treatment of his underlying infection. DISCHARGE PHYSICAL EXAMINATION: VITAL SIGNS: Temperature 98.3, pulse 80, blood pressure 162/88, respirations 16, oxygen saturation 97% on room air with respirations of 16. GENERAL: The patient was resting comfortably and appeared to be in no acute distress. CHEST: Lung sounds diminished toward the bases, otherwise clear. HEART: Regular rate and rhythm. ABDOMEN: Soft, non-tender, positive bowel sound. EXTREMITIES: He is moving extremity ad tanisha. There is no cyanosis, clubbing, or edema. NEUROLOGIC: He was confused but seemed to be at his baseline mental status. No obvious deficits are noted. PLAN: Mr. Bustos was discharged on 07/29/19 to [facility]. He was to continue with Ancef every 8 hours for 21 days. PICC line placement had been completed prior to discharge and all his medications were presented on the JUL previous admission to the hospital. He is to followup with Noel Tovar, his primary care physician. They are to call for instructions and appointment date. DISCHARGE DIET: Diabetic diet as tolerated. ACTIVITIES: As per physical therapy. All other care as per institution protocol. PRESCRIBED DISCHARGE MEDICATIONS: 1. Cefdinir 2 grams IV by PICC line for 21 days every 8 hours. All other medications prior to hospitalization are continued including he needed to be on a probiotic. CONDITION ON DISCHARGE: Stable and improved. DISPOSITION: The patient is discharged to [facility]. #[id number] MTDD
== END 2019-07-29 17:15 | DRG 871 ==
LOC: MS 13:35
PROVIDERS: ADMIT Nurse Practitioner Acute Care; ATTEND Nurse Practitioner Family
PROC: 02HV33Z Insertion of Infusion Device into Superior Vena Cava, Percutaneous Approach (ICD-10-PCS; principal; 2019-07-29)
DX: A41.01 Sepsis due to Methicillin susceptible Staphylococcus aureus (principal); J18.9 Pneumonia, unspecified organism; L03.115 Cellulitis of right lower limb; F03.90 Unspecified dementia, unspecified severity, without behavioral disturbance, psychotic disturbance, mood disturbance, and anxiety; R74.8 Abnormal levels of other serum enzymes; E87.6 Hypokalemia; L89.610 Pressure ulcer of right heel, unstageable; G25.81 Restless legs syndrome; F32.9 Major depressive disorder, single episode, unspecified; N40.0 Benign prostatic hyperplasia without lower urinary tract symptoms; Z91.048 Other nonmedicinal substance allergy status; Z87.891 Personal history of nicotine dependence; Z79.82 Long term (current) use of aspirin; Z79.899 Other long term (current) drug therapy; J02.0 Streptococcal pharyngitis

== ENCOUNTER 2019-08-19 22:07 | Emergency (ER) | payer OTHER ==
[~2019-08-19 22:07] MED LIST changes: +MIDAZOLAM INJ 5 MG/5 ML VIAL IV ONE; -TROP 1%/CYCLOPEN 1%/PHENYL 2% DROPS ONE
[2019-08-19] MEDS ORDERED: SUCCINYLCHOLINE CHLORIDE 200 MG/10 ML VIAL ONE (22:10)
[2019-08-19] MEDS ORDERED: ETOMIDATE INJECTION 2 MG/ML 20ML VIAL IV ONE (22:15)
[2019-08-19] MEDS ORDERED: SUCCINYLCHOLINE CHLORIDE 200 MG/10 ML VIAL IV ONE (22:18)
[2019-08-19] MEDS ORDERED: SODIUM CHLORIDE 0.9% (FLUSH) 10 ML SYG IV PRN (22:22)
[2019-08-19] MEDS ORDERED: SODIUM CHLORIDE 0.9% 1000ML 1,000 ML IVS ONE ×3 (22:22→23:55)
[2019-08-19] MEDS ORDERED: CHLORHEXIDINE GLUCONATE 4 % 15 ML UD TOP ONE (22:29)
--- NOTE | 2019-08-19 22:29 | ED.PDOC ---
History of Present Illness - General Chief Complaint: Respiratory Problem Stated Complaint: aspiration Time Seen by Provider: 08/19/19 22:22 - History of Present Illness Timing/Duration: unsure Severity: severe Associated Symptoms: fever/chills, shortness of breath Allergies/Adverse Reactions: Allergies Iodine Allergy (Verified 07/24/19 13:58) Home Medications: Ambulatory Orders Ascorbic Acid [Vitamin C] 1,000 mg PO DAILY 09/16/17 Aspirin [Aspirin EC Low Dose] 81 mg PO DAILY 09/16/17 Donepezil Hydrochloride [Donepezil HCl] 23 mg PO BEDTIME 09/16/17 [place]-3 Fatty Acids [Fish Oil Odor-Less 1200 mg] 1 cap PO DAILY 09/16/17 Tamsulosin [Flomax] 0.4 mg PO BEDTIME 09/16/17 Vitamins A & D W/ K [Adk 2463-8268-876 Unit-Mcg] 1 cap PO DAILY 09/16/17 Cyanocobalamin [Qc Vitamin B12] 5,000 mcg SL DAILY 07/25/19 Divalproex Sodium [Divalproex Sodium Dr] 500 mg PO BEDTIME 07/25/19 Memantine HCl [Memantine Hydrochloride E] 28 mg PO DAILY 07/25/19 Potassium Gluconate 550 mg PO DAILY 07/25/19 Propafenone HCl [Propafenone Hydrochloride] 225 mg PO BEDTIME 07/25/19 ceFAZolin SODIUM [Ancef] 2 gm IM Q8HR 21 Days #126 vial 07/29/19 Review of Systems - Review of Systems Unable to Obtain Due To: condition, intubated Past Medical History (General) - Patient Medical History Hx Seizures: No Hx Stroke: No Hx Dementia: No Hx Asthma: No Hx of COPD: No Hx Cardiac Disorders: No Hx Congestive Heart Failure: No Hx Pacemaker: No Hx Hypertension: No Hx Thyroid Disease: No Hx Diabetes: No Hx Gastroesophageal Reflux: No Hx Renal Disease: No Hx Cancer: No Hx of HIV: No Hx Hepatitis C: No Hx MRSA: No - Vaccination History Hx Tetanus, Diphtheria Vaccination: No Hx Influenza Vaccination: No Hx Pneumococcal Vaccination: No - Social History Hx Tobacco Use: Yes Hx Chewing Tobacco Use: No Hx Alcohol Use: No Hx Substance Use: No Hx Substance Use Treatment: No Hx Depression: No Hx Physical Abuse: No Hx Emotional Abuse: No Hx Suspected Abuse: No - Female History Patient : No Family Medical History - Family History Mother Age (years): 98 Living Status: Hx Family;Other: dementia Physical Exam - Physical Exam General Appearance: Emaciated, Frail, Obvious distress, Ill Appearing Ears, Nose, Throat: other - mucus membranes are dry Neck: normal inspection Respiratory: respiratory distress, rhonchi, other - decreased effort Cardiovascular/Chest: regular rate, rhythm, tachycardia Peripheral Pulses: femoral,right: 2+, femoral,left: 2+ Gastrointestinal/Abdominal: soft Extremity: no pedal edema Skin Exam: pallor Progress - Progress Progress: 08/19/19 23:12 multiple rechecks, Hypotension after first liter of saline, will complete 30cc/kg bolus andd then start pressors. plan to transfer by air to facility with ICU CXR no infiltrate tube in trachea. 107/76 HR 105 100% O2 sat 08/19/19 23:20 Dr Davey Martínez accepts pt in transfer to [facility] - Intubation Time of Intubation: 10:15 - video-assisted Intubation Method: orotracheal Tube Size (cm): 8.0 Medications: Succinylcholine Breath Sounds after Intubation: equal Intubation Complications: no complications Post Intubation Xray: Yes - tube in trachea Departure - Departure Clinical Impression: Septicemia, Respiratory failure, Dehydration Time of Disposition: 23:25 Disposition: Transfer to Hospital Condition: Serious Departure Forms: ED Discharge - Pt. Copy, Patient Portal Self Enrollment Referrals: [facility] [employer] [facility] [Primary Care Provider] - 1-2 Weeks Home Medications: Ambulatory Orders Ascorbic Acid [Vitamin C] 1,000 mg PO DAILY 09/16/17 Aspirin [Aspirin EC Low Dose] 81 mg PO DAILY 09/16/17 Donepezil Hydrochloride [Donepezil HCl] 23 mg PO BEDTIME 09/16/17 [place]-3 Fatty Acids [Fish Oil Odor-Less 1200 mg] 1 cap PO DAILY 09/16/17 Tamsulosin [Flomax] 0.4 mg PO BEDTIME 09/16/17 Vitamins A & D W/ K [Adk [id number] Unit-Mcg] 1 cap PO DAILY 09/16/17 Cyanocobalamin [Qc Vitamin B12] 5,000 mcg SL DAILY 07/25/19 Divalproex Sodium [Divalproex Sodium Dr] 500 mg PO BEDTIME 07/25/19 Memantine HCl [Memantine Hydrochloride E] 28 mg PO DAILY 07/25/19 Potassium Gluconate 550 mg PO DAILY 07/25/19 Propafenone HCl [Propafenone Hydrochloride] 225 mg PO BEDTIME 07/25/19 ceFAZolin SODIUM [Ancef] 2 gm IM Q8HR 21 Days #126 vial 07/29/19 Critical Care Note - Critical Care Note Total Time (mins): 34 - life threatening conditions including resp distress and hypotension, complex decision-making
[2019-08-19] MEDS ORDERED: CEFEPIME 2 GM in SODIUM CHL 0.9% 100ML MINI-BAG 100 ML IVPB ONE (22:34)
[2019-08-19] MEDS ORDERED: CEFEPIME 2 GM VIAL ONE (22:38)
[2019-08-19] MEDS ORDERED: SODIUM CHL 0.9% 100ML MINI-BAG 100 ML IVPB ONE (22:38)
[2019-08-19] MEDS ORDERED: MIDAZOLAM INJ 5 MG/5 ML VIAL ONE ×2 (22:47→23:11)
[2019-08-19] MEDS ORDERED: SODIUM CHLORIDE 0.9% 50ML 50 ML ONE ×2 (22:47→23:12)
--- NOTE | 2019-08-19 22:55 | RAD ---
EXAM DESCRIPTION: Chest,1 View CLINICAL HISTORY: 84 years Male resp failure COMPARISON: July 29, 2019. TECHNIQUE: AP view of the chest was obtained. FINDINGS: Endotracheal tube is present with the tip seen 5.2 cm above the angely. Cardiac size is within normal limits. Central vessels are prominent. No infiltrates or effusions seen. No consolidation. No pneumothorax. IMPRESSION: Satisfactory endotracheal tube placement. No evidence for infiltrate or congestive heart failure. Electronically signed by: Idalmis Vail MD 08/19/2019 10:53 PM CDT
[2019-08-19] MEDS ORDERED: MIDAZOLAM INJ 25 MG in SODIUM CHLORIDE 0.9% 50ML 25 ML IVPB SCH (23:00)
[2019-08-19] MEDS ORDERED: IPRATROPIUM/ALBUTEROL 3 ML VIAL NEB ONE (23:05)
[2019-08-19 23:22] VITALS: O2SAT 100
[2019-08-19] MEDS ORDERED: SODIUM CHLORIDE 0.9% 250ML 250 ML IVS ONE (23:30)
[2019-08-20 00:36] VITALS: TEMP 99.3
[2019-08-20 00:52] VITALS: BP 125/75
== END 2019-08-20 00:40 | disposition short-term general hospital (02) ==
LOC: ER 22:07
DX: A41.9 Sepsis, unspecified organism (principal); J96.90 Respiratory failure, unspecified, unspecified whether with hypoxia or hypercapnia; E86.0 Dehydration
CPT/HCPCS: 31500; 36415; 36600; 71045; 80053; 81001; 82550; 82553; 82803; 83605; 84484; 85025; 85610; 85730; 87040; 93005; 94002; 94003; 94640; 94760; 96361; 96365; 99291; A4216; J0330; J0692; J2250; J7030; J7050; J7620